=== PATIENT | male | born 1960 | race Caucasian/White ===

== ENCOUNTER 2023-10-25 18:43 | Emergency (ER) | payer OTHER ==
[2023-10-25 18:57] VITALS: BP 130/76; PULSE 84
[2023-10-25] MEDS: Diphtheria,Pertussis(Acell),Tetanus Vaccine 0.5 ML Syringe IM ONE (19:50)
[2023-10-25] MEDS: Lidocaine 1% with EPINEPHrine 1:100,000 20 ML MDV INJECT ONE (19:54)
[2023-10-25] MEDS: Bacitracin/Neomycin/Polymyxin B Oint 0.9 GM U/D Packet ONE (19:57)
[2023-10-25] MEDS: Bacitracin/Neomycin/Polymyxin B Oint 0.9 GM U/D Packet TOP ONE (19:58)
== END 2023-10-25 20:35 | disposition home or self-care (01) ==
LOC: KA.ED 18:43
DX: S61.012A Laceration without foreign body of left thumb without damage to nail, initial encounter (principal); Z23 Encounter for immunization; E78.00 Pure hypercholesterolemia, unspecified; Z88.0 Allergy status to penicillin; Z88.8 Allergy status to other drugs, medicaments and biological substances; Z79.899 Other long term (current) drug therapy; Z90.49 Acquired absence of other specified parts of digestive tract; W31.1XXA Contact with metalworking machines, initial encounter
CPT/HCPCS: 12001; 90471; 90715; 99282-25; 99283; J3490